=== PATIENT | female | born 1960 | race African-American/Black ===

== ENCOUNTER 2025-07-28 17:39 | Inpatient (IN) | payer MEDICARE, OTHER ==
[~2025-07-28] VITALS: Ht 157.5 cm; Wt 70.8 kg
[2025-07-28 19:02] LABS: PLATELET COUNT (AUTO) 308 K/uL (150-450); RED BLOOD CELL COUNT(AUTO) 3.67 MIL/uL (4.0-5.2); RED CELL DISTRIBUTION WIDTH 16.7 % (11.5-15.0); WHITE BLOOD COUNT (AUTO) 6.7 K/uL (4.3-11.0)
[2025-07-28 19:09] LABS: CALCIUM, SERUM 9.0 mg/dL (8.5-10.1); CREATININE 0.9 mg/dL (0.6-1.3); SODIUM SERUM 139.0 mmol/L (136-145); UREA NITROGEN, BLOOD 9.0 mg/dL (7-18)
[2025-07-28 19:14] LABS: INR 1.14 (0.91-1.10)
[2025-07-28] MEDS ORDERED: KETOROLAC TROMETHAMINE 15 MG/ML VIAL ONE (19:15)
[2025-07-28] MEDS: KETOROLAC TROMETHAMINE 15 MG/ML VIAL IV ONE (19:22)
[2025-07-29] VITALS: BP 115/83; TEMP 98.6; O2SAT 100
[2025-07-29] MEDS ORDERED: MAGNESIUM HYDROXIDE 30 ML UDC PO PRN
[2025-07-29] MEDS ORDERED: ONDANSETRON HCL/PF 4 MG/2 ML VIAL IVP PRN
[2025-07-29] MEDS: MORPHINE SULFATE INJ 2 MG/ML DISP.SYRIN IV PRN (03:47)
[2025-07-29 07:36] LABS: PLATELET COUNT (AUTO) 270 K/uL (150-450); RED BLOOD CELL COUNT(AUTO) 3.73 MIL/uL (4.0-5.2); RED CELL DISTRIBUTION WIDTH 16.7 % (11.5-15.0); WHITE BLOOD COUNT (AUTO) 5.2 K/uL (4.3-11.0)
[2025-07-29 07:56] LABS: CALCIUM, SERUM 9.2 mg/dL (8.5-10.1); CREATININE 0.9 mg/dL (0.6-1.3); PHOSPHORUS 4.7 mg/dL (2.5-4.9); SODIUM SERUM 139.0 mmol/L (136-145); UREA NITROGEN, BLOOD 13.0 mg/dL (7-18)
[2025-07-29] MEDS ORDERED: ACET325T53 PO (07:56)
[2025-07-29] MEDS ORDERED: EMTR1TAB18 PO (07:56)
[2025-07-29] MEDS ORDERED: BISA10SU61 RC (07:56)
[2025-07-29] MEDS ORDERED: NA P133E RC (07:56)
[2025-07-29] MEDS ORDERED: ONDA4TAB5 PO (07:56)
[2025-07-29] MEDS ORDERED: AMLO-212 PO (07:56)
[2025-07-29] MEDS ORDERED: HYDR12.55 PO (07:56)
[2025-07-29] MEDS ORDERED: MAGN400O6 PO (07:56)
[2025-07-29] MEDS ORDERED: FURO20TA4 PO (07:56)
[2025-07-29] MEDS ORDERED: MULT-213 PO (07:56)
[2025-07-29] MEDS ORDERED: NALOXONE NS (07:56)
[2025-07-29 08:00] VITALS: BP 101/67; TEMP 98.4; O2SAT 99
[2025-07-29] MEDS: ENOXAPARIN SODIUM 40 MG/0.4 ML DISP.SYRIN SQ SCH (08:39)
[2025-07-29] MEDS ORDERED: ACETAMINOPHEN 325 MG TABLET PO PRN ×2 (10:30)
[2025-07-29] MEDS ORDERED: HOME MED MISCELLANEOUS XX SCH ×2 (10:30)
[2025-07-29] MEDS ORDERED: NA PHOS,M-B/NA PHOS,DI-BA 1 EA ENEMA RC PRN (10:30)
[2025-07-29] MEDS ORDERED: NALOXONE HCL 0.4 MG/ML AMPUL IV PRN (10:30)
[2025-07-29] MEDS ORDERED: BISACODYL SUPP (10 MG) 10 MG/SUPP.RECT SUPP.RECT RC PRN (10:30)
[2025-07-29] MEDS: AMLODIPINE BESYLATE 5 MG TABLET PO SCH (12:21)
[2025-07-29] MEDS: MORPHINE SULFATE INJ 4 MG/ML DISP.SYRIN IV PRN (12:33)
[2025-07-29] MEDS: MAG HYDROX/AL HYDROX/SIMETH 30 ML UDC PO PRN (14:10)
[2025-07-29] MEDS: MAGNESIUM HYDROXIDE 30 ML UDC PO PRN (14:10)
[2025-07-29 16:00] VITALS: BP 102/72; TEMP 98.5; O2SAT 97
[2025-07-29] MEDS: FUROSEMIDE 20 MG TABLET PO SCH (17:37)
[2025-07-29 20:00] VITALS: BP 116/88; TEMP 99; O2SAT 100
[2025-07-29] MEDS: TEMAZEPAM 7.5 MG CAPSULE PO PRN (22:31)
[2025-07-30 04:00] VITALS: BP 125/72; TEMP 98.9; O2SAT 100
[2025-07-30 08:00] VITALS: BP 124/93; TEMP 98; O2SAT 100
[2025-07-30] MEDS: MULTIVITAMINS,THERAGRAN 1 UDTAB TABLET PO SCH (08:28)
[2025-07-30] MEDS: HYDROCHLOROTHIAZIDE 25 MG TABLET PO SCH (08:29)
[2025-07-30 16:00] VITALS: BP 116/80; TEMP 98.4; O2SAT 100
[2025-07-30 20:00] VITALS: BP 110/73; TEMP 97.7; O2SAT 100
[2025-07-30] MEDS: HYDROCODONE/APAP 5/325MG TABLET PO PRN (20:43)
[2025-07-31 04:00] VITALS: BP_SYST 110; BP_SYST 116; BP_DIAS 73; BP_DIAS 80; TEMP 97.7; TEMP 98.4; O2SAT 100
[2025-07-31 09:35] LABS: PLATELET COUNT (AUTO) 269 K/uL (150-450); RED BLOOD CELL COUNT(AUTO) 4.38 MIL/uL (4.0-5.2); RED CELL DISTRIBUTION WIDTH 17.5 % (11.5-15.0); WHITE BLOOD COUNT (AUTO) 6.3 K/uL (4.3-11.0)
[2025-07-31 10:47] VITALS: BP 112/91; TEMP 97.7
== END 2025-07-31 13:00 | DRG 948 ==
LOC: ER 17:43 → MEDSG1 20:43
PROVIDERS: ADMIT Nurse Practitioner Acute Care; ATTEND Nurse Practitioner Acute Care
DX: G89.18 Other acute postprocedural pain (principal); D68.59 Other primary thrombophilia; I50.9 Heart failure, unspecified; I11.0 Hypertensive heart disease with heart failure; F32.9 Major depressive disorder, single episode, unspecified; E66.01 Morbid (severe) obesity due to excess calories; J45.909 Unspecified asthma, uncomplicated; D64.9 Anemia, unspecified; R13.10 Dysphagia, unspecified; Z96.653 Presence of artificial knee joint, bilateral; M19.90 Unspecified osteoarthritis, unspecified site; Z68.28 Body mass index [BMI] 28.0-28.9, adult; Z74.09 Other reduced mobility
CPT/HCPCS: 36415; 71045-TC; 73564-TC; 80048-TC; 83735-TC; 84100-TC; 85025-TC; 85730-TC; 87081-TC; 93971-TC; 97110-TC; 97116-TC; 97530-TC; G0378; J1650; J1885; J2270